=== PATIENT | female | born 1995 | race Caucasian/White ===

== ENCOUNTER 2017-06-20 19:04 | Emergency (ER) | payer OTHER, SELFPAY ==
[2017-06-20 19:05] VITALS: BP 129/79; PULSE 87; RESP 16; TEMP 36.9; O2SAT 99; BMI 24.7
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
[2017-06-20] MEDS: Naproxen 500 MG Tablet PO (19:38)
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
[2017-06-20 20:23] VITALS: BP 114/77; PULSE 93; RESP 18
== END 2017-06-20 20:29 | disposition home or self-care (01) ==
PROVIDERS: Emergency Provider Emergency Medicine; Family Provider Physician Assistant; PCP Physician Assistant
DX: S39.012A Strain of muscle, fascia and tendon of lower back, initial encounter (principal); S62.617A Displaced fracture of proximal phalanx of left little finger, initial encounter for closed fracture; S70.311A Abrasion, right thigh, initial encounter; V86.99XA Unspecified occupant of other special all-terrain or other off-road motor vehicle injured in nontraffic accident, initial encounter; Y93.I9 Activity, other involving external motion; Y92.89 Other specified places as the place of occurrence of the external cause; Y99.8 Other external cause status
CPT/HCPCS: 72100; 73130; 99282

== ENCOUNTER 2017-06-21 00:20 | Emergency (ER) | payer OTHER, SELFPAY ==
[2017-06-21 00:21] VITALS: BP 123/70; PULSE 93; RESP 18; TEMP 36.9; O2SAT 97; BMI 26.4
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
--- NOTE | 2017-06-21 01:56 | ED.DEP ---
ED Disposition - Plan for ED Patient: Disposition: Home or Assisted Living Chief Complaint: Head Injury Instructions: ED Concussion, ED Contusion Face Referrals: Cassius Penny PA [Primary Care Provider] - 3-5 Days if not improving Additional Instructions: You may use naproxen or an jmez-for-gqhechw pain medication of your choice for headache. If you have any worsening of your condition or any new concerning symptoms, return to the emergency department immediately for another evaluation.
[2017-06-21] MEDS: Naproxen 500 MG Tablet PO (02:03)
[2017-06-21 02:05] VITALS: RESP 18
== END 2017-06-21 02:06 | disposition home or self-care (01) ==
PROVIDERS: Emergency Provider Emergency Medicine; Family Provider Physician Assistant; PCP Physician Assistant
DX: S06.0X0D Concussion without loss of consciousness, subsequent encounter (principal); S16.1XXD Strain of muscle, fascia and tendon at neck level, subsequent encounter; S00.83XD Contusion of other part of head, subsequent encounter; V86.65XD Passenger of 3- or 4- wheeled all-terrain vehicle (ATV) injured in nontraffic accident, subsequent encounter
CPT/HCPCS: 70450; 72125; 99283

== ENCOUNTER 2018-01-08 19:16 | Emergency (ER) | payer OTHER, SELFPAY ==
[2018-01-08 19:17] VITALS: BP 142/106; PULSE 96; RESP 18; TEMP 36.7; O2SAT 98; BMI 25.5
[2018-01-08 20:55] LABS: Absolute Lymphocyte Count 2.34 X10^3/ul (0.83-4.51); Absolute Neutrophil Count 3.3 X10^3/uL (2.0-7.7); Basophil# 0.02 X10^3/uL; Basophil% 0.3 % (0-1); Eosinophil# 0.16 X10^3/uL; Eosinophils% 2.5 % (0-5); Hematocrit 34.1 % (37-47); Hemoglobin 10.5 g/dl (12.0-15.0); Lymphocyte # 2.34 X10^3/ul (4.0); Lymphocyte % 36.5 % (19-41); Mean Corp Hgb Conc 30.8 g/gl (32-36); Monocyte# 0.57 X10^3/uL; Monocyte% 8.9 % (0-10); Neutrophil # 3.32 X10^3/uL (2.7-7.7); Neutrophil % 51.8 % (47-70); Platelet Count 309 K/mm3 (150-450); RBC Distribution Width CV 14.5 % (11.6-14.6); RBC Distribution Width SD 41.1 fl (35.1-43.9); Red Blood Count 4.37 M/mm3 (4.2-5.4); White Blood Count 6.4 K/mm3 (4.4-11.0)
[2018-01-08 20:57] LABS: Bacteria 0 SEEN /hpf (None Seen)
[2018-01-08 20:58] LABS: POSITIVE COUNT NO; POSITIVE DIFFERENTIAL NO; POSITIVE MORPHOLOGY NO
[2018-01-08 21:00] LABS: Color, Urine Yellow (Yellow); Glucose, Dipstick Normal (Normal); Ketone-Dipstick 15 mg/dl (Negative); Leukocyte Esterase-Dipstick Negative /ul (Negative); Nitrite-Dipstick Negative (Negative); Occult Blood-Urine 50 /ul (Negative); Protein-Dipstick Negative (Negative); Specific Gravity, Urine 1.015 (1.002-1.030); Urine Bilirubin Dipstick Negative (Negative); Urine Clarity Clear (Clear); Urine Urobilinogen Normal (Normal)
[2018-01-08 21:13] LABS: Anion Gap 7 (5-15); BUN 15 mg/dL (7-18); BUN/Creat Ratio 23.4 RATIO (10-20); Calcium,Total 8.6 mg/dL (8.5-10.1); Chloride 107 mmol/L (98-107); Creatinine, Serum 0.64 mg/dL (0.55-1.02); EST Glomerular Filtration Rate 122 mL/min (>60); Est Glom Filt Rate - Afr Amer 147 mL/min (>60); Estimated Creatinine Clearance 108.13 ml/min; Glucose 95 mg/dL (74-106); Potassium 3.3 mmol/L (3.5-5.1); Sodium Level 141 mmol/L (136-145)
[2018-01-08 21:23] LABS: Pregnancy, Serum, hCG Quali. NEGATIVE Negative (0-9 Nonpreg)
[2018-01-08 21:30] LABS: Red Blood Cells-Urine 0-5 SEEN /hpf (0-5); Squamous Epithelial Cells - UA 0-5 SEEN /hpf (5-10); White Blood Cells 0-5 SEEN /hpf (0-5)
[2018-01-08 21:32] LABS: Mucous, Urine RARE /hpf (<or=2+)
--- NOTE | 2018-01-08 21:54 | CT_ITS ---
STUDY: CT ABDOMEN AND PELVIS WITH CONTRAST REASON FOR EXAM: Female, 22 years old. Left upper quadrant pain RADIATION DOSAGE (If Supplied By Facility): CTDIvol = ( 8.49 ) mGy, DLP = ( 721.15 ) mGycm TECHNIQUE: Transaxial images were obtained from the dome of the diaphragm to the symphysis pubis without oral contrast. 100ML ml of Isovue 300 contrast was administered. Sagittal and coronal images were reconstructed. Individualized dose optimization techniques were used for this CT. COMPARISON: None. FINDINGS: The lung bases are clear. The liver is normal. No dilated intrahepatic biliary radicles. The gallbladder is normal with no calcifications within it. There is no pericholecystic fluid collection or streakiness The spleen is normal. The pancreas is normal. Both adrenals are normal. The kidneys are normal with no masses, calculi or hydronephrosis The stomach is fluid-filled and distended There is no bowel distention, acute appendicitis or diverticulitis. No constricting lesions are seen in large bowel. There is a mild degree of fecal stasis with a large ventricle. In the rectum The abdominal wall is intact with no hernias. There is no ascites or any free intraperitoneal air. No indication of epiploic appendagitis The vascular structures in the retroperitoneum are normal. There is no retrocrural, retroperitoneal or mesenteric adenopathy. The bones and joints are normal. The urinary bladder is normal.--The uterus is normal. There are no abnormal adnexal masses and no free fluid in the cul-de-sac.. There is no inguinal or pelvic adenopathy. There is no inguinal hernia. . CT/Abdomen/Pelvis WITH Contrast IMPRESSION: No acute findings in the abdomen and pelvis. Specifically there is no acute appendicitis or diverticulitis. Fecal stasis with a large fecal impaction the rectum. A markedly distended fluid-filled stomach Electronically Signed: Solo Gerard MD at 0:51 EST Tel , Service support ,
[2018-01-08] MEDS: Ondansetron 4 MG/2 ML Vial IV (22:03)
[2018-01-08] MEDS: Morphine 4 MG/ML Syringe IV (22:04)
[2018-01-08] MEDS: 0.9% Normal Saline 1,000 ML 150 ML IV (22:04)
[2018-01-08 22:33] LABS: AST(SGOT) 14 U/L (15-37); Alanine Aminotransfer ALT/SGPT 19 U/L (13-56); Alkaline Phosphatase 68 U/L (45-117); Bilirubin, Direct 0.09 mg/dL (0.00-0.30); Globulin 3.5 g/dL (2.2-4.2); Lipase 132 U/L (73-393); Protein, Total 7.5 g/dL (6.4-8.2)
--- NOTE | 2018-01-09 01:05 | ED.VISSUMM ---
- ER Visit Summary Date of Service: 01/08/18 Chief Complaint: Left upper quadrant pain History of Present Illness: The patient is a 22 F with epigastric and left upper quadrant pain for the past couple of hours. She reports mild nausea. She had some subjective chills. Patient's mother reports she had similar symptoms when she had appendicitis. Physical Examination: Vital signs remarkable for blood pressure of 142/106, otherwise unremarkable. Patient is sitting upright in bed. She is nontoxic appearing. Heart is regular rate and rhythm. Lung sounds are clear. Abdomen is soft with focal tenderness in the left upper quadrant. Hypoactive but present bowel sounds are noted. There is no guarding or rebound. Test Results: CBC was normal white count hemoglobin 10.5. Chemistry studies significant only for potassium 3.3. Urinalysis unremarkable. test negative. CT abdomen pelvis shows no acute findings. There is no evidence of appendicitis or diverticulitis. There is fecal stasis noted with a large amount of stool. She is markedly distended fluid-filled stomach. Emergency Department Course and Treatment: Patient was given morphine, Zofran, and IV fluids here. Test results were discussed with patient and mother at bedside. She will be given mag citrate and this will be followed by [facility] daily. Treatment Plan: [] Disposition: Discharge Impression: Constipation This note was generated with [employer] dictation software. It may contain incorrect words, spelling, and punctuation that were not noted in review of the chart prior to signing ED Disposition - Plan for ED Patient: Chief Complaint: Abd Pain Referrals: Chin Marshall MD [Primary Care Provider] -
--- NOTE | 2018-01-09 01:06 | ED.DEP ---
ED Disposition - Plan for ED Patient: Disposition: Home or Assisted Living Chief Complaint: Abd Pain Instructions: ED Constipation Prescriptions: Magnesium Citrate [Citrate Of Magnesia] 150 ml PO Q6H PRN PRN #1 bottle PRN Reason: Constipation Polyethylene Glycol 3350 [Miralax] 17 gm PO DAILY #30 packet Referrals: Chin Marshall MD [Primary Care Provider] - 1 Week
[2018-01-09 01:19] VITALS: BP 114/74; PULSE 112; PULSE 98; RESP 17; O2SAT 96; O2SAT 98
== END 2018-01-09 01:24 | disposition home or self-care (01) ==
PROVIDERS: Emergency Provider Emergency Medicine; Family Provider Family Medicine; PCP Family Medicine
DX: K59.00 Constipation, unspecified (principal); K21.9 Gastro-esophageal reflux disease without esophagitis
CPT/HCPCS: 74177; 80048; 80076; 81001; 83690; 84703; 85025; 96361; 96374; 96375; 99283; J7030; Q9967; A4216; J2405

== ENCOUNTER 2018-09-24 02:49 | Emergency (ER) | payer OTHER, SELFPAY ==
[2018-09-24 02:52] VITALS: BP 129/91; PULSE 89; RESP 24; TEMP 36.8; O2SAT 97; BMI 30.2
--- NOTE | 2018-09-24 03:46 | RAD_ITS ---
STUDY: X-RAY CHEST REASON FOR EXAM: Female, 23 years old. Chest pain TECHNIQUE: Single AP portable view of the chest. COMPARISON: 11/12/2016 FINDINGS: The lungs are clear and expanded. There is no demonstrated pleural abnormality. Normal size heart. Normal mediastinum and skylar. Normal visualized pulmonary arteries. Normal visualized aortic arch and descending thoracic aorta. Normal visualized thoracic spine. Normal visualized ribs, clavicles, and shoulders. There is no demonstrated abnormality of the visualized soft tissue structures of the upper abdomen. RAD/Chest 1 View (Portable) IMPRESSION: Normal x-ray examination of the chest. Electronically Signed: Les Vigil MD at 4:24 EDT Tel , Service support ,
--- NOTE | 2018-09-24 03:46 | EKG12_ITS ---
Test Reason : Blood Pressure : / mmHG Vent. Rate : 079 BPM Atrial Rate : 079 BPM P-R Int : 116 ms QRS Dur : 082 ms QT Int : 370 ms P-R-T Axes : 015 034 037 degrees QTc Int : 424 ms Normal sinus rhythm with sinus arrhythmia Normal ECG Confirmed by EARL KIRKPATRICK ([id number]), newspaper editor managing PRABHA GARCIA ([id number] on 09/25/2018 3:11:57 PM Referred By: Confirmed By:EARL KIRKPATRICK
--- NOTE | 2018-09-24 03:48 | ED.DCSUM_ITS ---
- ER Visit Summary Date of Service: 09/24/18 Chief Complaint: Chest pain History of Present Illness: The patient is a 23 F presenting with chest pain. Patient states this started 1.5 hours ago. She states she was getting ready to go to bed and started having pain in her mid chest. She denies radiation. She has mild shortness of breath associated with this. She denies PE/DVT risk factors. No CAD risk factors. Physical Examination: Vitals are stable. Patient is afebrile. Alert no acute distress. HEENT exam is unremarkable. Neck is supple. Lungs are clear and equal bilaterally. Chest tenderness with no crepitus Heart is regular rate and rhythm. Abdomen is soft nontender nondistended. No guarding or rebound Extremities are unremarkable. Skin is warm and dry. No rash No focal neurologic deficit. Remainder of exam is unremarkable. Emergency Department Course and Treatment: Patient was given aspirin on arrival. EKG is sinus rate of 79 with no acute ischemic changes. She was given Toradol IV. CBC shows a hemoglobin 11.7. Chemistries unremarkable. Troponin is negative. hCG negative. D-dimer negative. Second troponin is also negative. On reevaluation patient is resting comfortably. She is advised to follow up wi th her primary care physician. Advised return to ED for worsening complaints. Disposition: Discharge home Impression: Chest wall pain This note was generated with [employer] dictation software. It may contain incorrect words, spelling, and punctuation that were not noted in review of the chart prior to signing ED Disposition - Plan for ED Patient: Instructions: CHEST WALL PAIN, Costochondritis Prescriptions: Naproxen [Naprosyn] 500 mg PO BID PRN #20 tab Prescription Printed Referrals: Chin Marshall MD [Primary Care Provider] -
[2018-09-24 04:06] LABS: Internal QC Validated? YES +Cl - CLEAR BKGD; Pregnancy, Serum, hCG Quali. NEGATIVE Negative
[2018-09-24] MEDS: Aspirin 81 MG TAB.CHEW 324 MG PO (04:07)
[2018-09-24 04:10] LABS: Absolute Lymphocyte Count 2.62 X10^3/uL (0.83-4.51); Absolute Neutrophil Count 3.4 X10^3/uL (2.0-7.7); Basophil# 0.03 X10^3/uL; Basophil% 0.4 % (0-1); Eosinophil# 0.12 X10^3/uL; Eosinophils% 1.8 % (0-5); Hematocrit 33.6 % (37-47); Hemoglobin 11.7 g/dL (12.0-15.0); Lymphocyte # 2.62 X10^3/ul (4.0); Lymphocyte % 39.2 % (19-41); Mean Corp Hgb Conc 34.8 g/dL (32-36); Mean Corpuscular Hgb 30.5 pg (27.0-32.0); Mean Corpuscular Volume 87.7 fL (81-99); Mean Platelet Vol. 11.7 fl (6.2-12.0); Monocyte# 0.52 X10^3/uL; Monocyte% 7.8 % (0-10); NRBC Flagged by Analyzer 0 % (0-5); Neutrophil # 3.38 X10^3/uL (2.7-7.7); Neutrophil % 50.7 % (47-70); Platelet Count 215 K/mm3 (150-450); RBC Distribution Width CV 11.6 % (11.6-14.6); RBC Distribution Width SD 36.9 fl (35.1-43.9); Red Blood Count 3.83 M/mm3 (4.2-5.4); White Blood Count 6.7 K/mm3 (4.4-11.0)
[2018-09-24 04:14] LABS: Anion Gap 10 (5-15); BUN 13 mg/dL (7-18); BUN/Creat Ratio 17.8 RATIO (10-20); Chloride 110 mmol/L (98-107); Creatinine, Serum 0.73 mg/dL (0.55-1.02); EST Glomerular Filtration Rate 104 mL/min (>60); Est Glom Filt Rate - Afr Amer 126 mL/min (>60); Estimated Creatinine Clearance 85.36 ml/min; Glucose 93 mg/dL (74-106); Potassium 3.5 mmol/L (3.5-5.1); Sodium Level 143 mmol/L (136-145)
[2018-09-24 04:41] LABS: D-Dimer Quantitative (DVT/PE) < 0.27 FEU/ug/m (0.27-0.49)
[2018-09-24 04:49] VITALS: BP 116/80; PULSE 73; RESP 16; O2SAT 98
[2018-09-24 06:00] VITALS: BP 113/70; PULSE 67; RESP 20; O2SAT 97
--- NOTE | 2018-09-24 06:31 | ED.DEP ---
ED Disposition - Plan for ED Patient: Instructions: CHEST WALL PAIN, Costochondritis Prescriptions: Naproxen [Naprosyn] 500 mg PO BID PRN #20 tablet Referrals: Chin Marshall MD [Primary Care Provider] -
[2018-09-24 06:48] VITALS: BP 114/73; PULSE 68; RESP 22; O2SAT 98
== END 2018-09-24 06:48 | disposition home or self-care (01) ==
LOC: ED 04:25
PROVIDERS: Emergency Provider Emergency Medicine; Family Provider Family Medicine; PCP Family Medicine
DX: R07.89 Other chest pain (principal); R06.02 Shortness of breath
CPT/HCPCS: 71045; 80048; 84484; 84703; 85025; 85379; 93005; 96374; 99285; A4216

== ENCOUNTER 2019-04-05 22:17 | Emergency (ER) | payer OTHER, SELFPAY ==
[2019-04-05 22:18] VITALS: BP 136/82; PULSE 89; RESP 18; TEMP 36.6; O2SAT 98; BMI 26.4
--- NOTE | 2019-04-05 22:36 | ED.VISSUMM ---
- ER Visit Summary Date of Service: 04/05/19 Chief Complaint: Left wrist injury History of Present Illness: The patient is a 23 F who presents with a left wrist injury that occurred tonight. Patient slipped on ice and fell. Patient landed on her left hand and wrist. Patient states the pain is worse with any movement. Patient denies any paresthesias or weakness. Patient states her hand feels weak due to the pain. Patient denies any head injury or loss of consciousness. Patient is right-hand dominant. Patient denies any other injuries. Physical Examination: Vital signs are stable. Patient is afebrile. Patient is in no acute distress. Musculoskeletal exam reveals tenderness over the left wrist and third metacarpal of her left hand. There is no bony crepitance or step-off. There is no ecchymosis. There is slight edema. There is a superficial abrasion over the palm of her left hand near the hyperthenar eminence. There is no bleeding noted. Range of motion was limited in all motions of the left wrist and hand secondary to pain. Sensation was intact light touch in all digits. Capillary refill was less than 2 seconds in all digits. There is good strength in the radial, median, and ulnar areas. Radial pulses are equal bilaterally. Test Results: X-rays of the left wrist were obtained. There is no acute fracture. These were interpreted by the radiologist and myself. Emergency Department Course and Treatment: Patient was given an ice pack and a dose of [place]. Patient was given a Velcro wrist splint. Patient was instructed to ice and elevate the left wrist. Patient was instructed to follow-up with her primary care physician in 5 to 7 days. Patient was instructed to take Tylenol or ibuprofen as needed for pain. Patient and family understood and were agreeable with the plan. All questions were answered. Disposition: Discharge home Impression: Left wrist sprain This note was generated with [employer] dictation software. It may contain incorrect words, spelling, and punctuation that were not noted in review of the chart prior to signing ED Disposition - Plan for ED Patient: Disposition: Home or Assisted Living Diagnosis: Left wrist sprain Instructions: Wrist Sprain Referrals: Chin Marshall MD [Primary Care Provider] - 5-7 Days
[2019-04-05] MEDS: HYDROcodone Bitartrate/Apap 5/325 Tablet PO (22:48)
--- NOTE | 2019-04-05 22:55 | RAD_ITS ---
STUDY: X-RAY - LEFT WRIST REASON FOR EXAM: Female, 23 years old. FALL. LEFT WRIST PAIN TECHNIQUE: 3 view(s) of the wrist were obtained. COMPARISON: None. FINDINGS: Normal visualized distal radius and ulna. Normal radiocarpal articulation. Normal distal radioulnar articulation. Normal carpal bones. Normal carpal articulations. Normal carpometacarpal articulation of the thumb. Normal second through fifth carpometacarpal articulations. Normal visualized metacarpal bones. The soft tissue structures are unremarkable. RAD/Wrist min 3 Views IMPRESSION: Normal x-ray examination of the wrist. Electronically Signed: Jimbo Vera, at 23:18 EST Tel , Service support ,
== END 2019-04-05 23:48 | disposition home or self-care (01) ==
PROVIDERS: Emergency Provider Emergency Medicine; PCP Family Medicine
DX: S63.502A Unspecified sprain of left wrist, initial encounter (principal); K21.9 Gastro-esophageal reflux disease without esophagitis; F41.9 Anxiety disorder, unspecified; Z79.899 Other long term (current) drug therapy; W00.0XXA Fall on same level due to ice and snow, initial encounter; Y93.01 Activity, walking, marching and hiking; Y92.89 Other specified places as the place of occurrence of the external cause; Y99.8 Other external cause status
CPT/HCPCS: 73110; 99283

== ENCOUNTER 2019-11-30 21:38 | Emergency (ER) | payer OTHER, SELFPAY ==
[2019-11-30 21:39] VITALS: BP 123/80; PULSE 76; RESP 16; TEMP 36.8; O2SAT 98; BMI 26.7
--- NOTE | 2019-11-30 22:09 | CT_ITS ---
STUDY: CT ABDOMEN AND PELVIS WITHOUT CONTRAST REASON FOR EXAM: Female, 24 years old. LT FLANK PAIN. No surgical or medical hx. Not RADIATION DOSAGE (If Supplied By Facility): CTDIvol = ( 7.25 ) mGy, DLP = ( 369.67 ) mGycm TECHNIQUE: Transaxial images were obtained from the dome of the diaphragm to the symphysis pubis without oral contrast, and without intravenous contrast. Sagittal and coronal images were reconstructed. Individualized dose optimization techniques were used for this CT. COMPARISON: 01/08/2018. FINDINGS: Lung bases are clear. Heart size is normal. The liver is unremarkable. The gallbladder is unremarkable. The spleen and pancreas are unremarkable. The adrenal glands are normal. The kidneys are unremarkable. No stones or hydronephrosis. Ureters are normal in course and caliber. No ureteral stone. The aorta is normal in caliber. There is no free fluid, free air or organized collection. No bowel obstruction or inflammatory change. Moderate to large stool burden. Urinary bladder is unremarkable. Normal abdominal wall. Normal osseous structures. CT/Abdomen/Pelvis without Cont IMPRESSION: 1. Moderate to large stool burden. 2. No renal stones or obstructive uropathy. Electronically Signed: Ade Leonard MD at 23:27 EDT Tel , Service support ,
[2019-11-30] MEDS: Metoclopramide 10 MG/2 ML Vial IV (22:33)
[2019-11-30] MEDS: DiphenhydrAMINE 50 MG/ML Syringe 25 MG IV (22:34)
[2019-11-30] MEDS: Ketorolac 15 MG/ML Vial IV (22:35)
[2019-11-30] MEDS: 0.9% Normal Saline 1,000 ML 1000 ML IV (22:37)
[2019-11-30 22:43] LABS: Internal QC Validated? YES +Cl - CLEAR BKGD; Pregnancy, Serum, hCG Quali. NEGATIVE Negative
[2019-11-30 22:59] LABS: Mucous, Urine 0 SEEN /hpf (<or=2+)
[2019-11-30 23:22] LABS: Color, Urine Yellow (Yellow); Glucose, Dipstick Normal (Normal); Ketone-Dipstick Negative (Negative); Leukocyte Esterase-Dipstick 25 /ul (Negative); Nitrite-Dipstick Negative (Negative); Occult Blood-Urine Negative /ul (Negative); Protein-Dipstick Negative (Negative); Specific Gravity, Urine 1.015 (1.002-1.030); Urine Bilirubin Dipstick Negative (Negative); Urine Clarity Clear (Clear); Urine Urobilinogen Normal (Normal)
[2019-11-30 23:36] LABS: Bacteria RARE /hpf (None Seen); Red Blood Cells-Urine 0-5 SEEN /hpf (0-5); Squamous Epithelial Cells - UA 5-10 SEEN /hpf (5-10); White Blood Cells 5-10 SEEN /hpf (0-5)
--- NOTE | 2019-12-01 00:10 | ED.VISSUMM ---
- ER Visit Summary Date of Service: 12/01/19 Chief Complaint: Abdominal pain History of Present Illness: The patient is a [address] Marshall. She reports she has left upper quad abdominal pain that began 2 days ago and is gradually gotten worse. Is sharp pain is 7 out of 10 currently and at worst. Is worsened by laying flat. Is relieved by position. She said nausea without vomiting. No diarrhea. Last bowel was today. No hematochezia. No dysuria or frequency. She reports her last menstrual period was a few days ago. No vaginal bleeding or discharge. On review of systems patient also complains of headache is 6 out of 10 in severity. Is an aching pain that is occipital in location. She states it is similar to her prior headaches. And that it is tolerable. Physical Examination: Vitals: Stable. Afebrile. General: Well-nourished and well-developed. Head: Normocephalic atraumatic. Neck: Supple, no lymphadenopathy. No JVD. Nontender. Cardiovascular: Regular rate and rhythm. No murmurs. Respiratory: No respiratory distress. Clear to auscultation bilaterally. Abdominal: Soft, mild left upper quadrant tenderness palpation, nondistended, normal bowel sounds. No guarding, rebound, or peritoneal signs. Back: Mild CVA tenderness. Extremities: Nontender, no edema. Skin: Normal color, no rash. Neurologic: Alert and oriented ?3. Cranial nerves II through XII are intact. Normal strength and sensation. Psych: Normal affect. Test Results: test is negative. Urinalysis shows no evidence of infection or stone. Clinical Impression(s) from Imaging Studies Abdomen/Pelvis CT 11/30/19 22:09 IMPRESSION: 1. Moderate to large stool burden. 2. No renal stones or obstructive uropathy. Electronically Signed: Ade Leonard MD at 23:27 EDT Tel , Service support , Emergency Department Course and Treatment: Patient had an IV placed. She was given a liter normal saline. She is given Toradol, Reglan, and Benadryl IV. She feels improved and is resting comfortably. Treatment Plan: Patient be discharged with Reglan and magnesium citrate. Instructed to follow with her primary care physician 1 to 2 days if not proving after bowel movement. Return to the emergency department for any worsening symptoms. Disposition: To home in improved and stable condition. Impression: 1. Abdominal pain, uncertain cause. This note was generated with [employer] dictation software. It may contain incorrect words, spelling, and punctuation that were not noted in review of the chart prior to signing ED Disposition - Plan for ED Patient: Disposition: Home or Assisted Living Instructions: ED Constipation Prescriptions: Magnesium Citrate [Citrate Of Magnesia] 300 ml PO X1 #1 bottle Prescription Printed Metoclopramide [Reglan] 10 mg PO 4X/DAY PRN #20 tab PRN Reason: Headache Prescription Printed Referrals: Chin Marshall MD [Primary Care Provider] - 1-2 Days if not improving
[2019-12-01 00:22] VITALS: BP 112/68; PULSE 66; RESP 16
== END 2019-12-01 00:28 | disposition home or self-care (01) ==
LOC: ED 22:08
PROVIDERS: Emergency Provider Emergency Medicine; PCP Family Medicine
DX: R10.12 Left upper quadrant pain (principal); K21.9 Gastro-esophageal reflux disease without esophagitis; F41.9 Anxiety disorder, unspecified; Z79.899 Other long term (current) drug therapy
CPT/HCPCS: 74176; 81001; 84703; 96361; 96374; 96375; 99281; J7030

== ENCOUNTER → 2020-06-25 | Outpatient (CLI) | payer OTHER, SELFPAY ==
[2020-07-02 12:50] LABS: Pathologist provided ICD-10: N
[2020-07-02 19:46] LABS: HPV Reflexed? NOT INDICATED
== END | disposition home or self-care (01) ==
LOC: LABSPEC 15:24
PROVIDERS: PCP Family Medicine; Visit Provider Student in an Organized Health Care Education/Training Program
DX: Z12.4 Encounter for screening for malignant neoplasm of cervix (principal)
CPT/HCPCS: 88175; G0145

== ENCOUNTER 2020-07-04 13:19 | Emergency (ER) | payer OTHER, SELFPAY ==
[2020-07-04 13:20] VITALS: BP 125/87; PULSE 84; RESP 18; TEMP 36.6; O2SAT 94; BMI 26.8
--- NOTE | 2020-07-04 13:35 | EKG12_ITS ---
Test Reason : CP Blood Pressure : / mmHG Vent. Rate : 079 BPM Atrial Rate : 079 BPM P-R Int : 126 ms QRS Dur : 074 ms QT Int : 386 ms P-R-T Axes : 010 030 046 degrees QTc Int : 442 ms Normal sinus rhythm Normal ECG Confirmed by ELLIE BERNABE, NITZA ([id number]), field map editor NIKHIL XIAO ([id number]) on 07/06/2020 9:12:46 AM Referred By: REBECA/RANDY Confirmed By:NITZA ARGUETA MD
--- NOTE | 2020-07-04 13:36 | EDS_ITS ---
HPI History of Present Illness Chief Complaint: Chest Pain Informant: patient and parent Onset/Context/Timing Onset: Today Activity at onset: gradual Timing: Continuous Location: Substernal Current Severity: Mild Maximum Severity: Mild Associated Symptoms: Negative for Nausea, Vomiting, Diaphoresis and Dyspnea Narrative Prior Similar Symptoms: No Recent Illness/Hospitalization: No CVD Risk Factors: Negative for Hypertension, Diabetes, Hypercholesterolemia and Family History 1' </=55 PE Risk Factors: Negative for Recent Travel/Surgery, Recent Immobilization, Prior DVT or PE and Cancer [facility] Medical History (Updated 07/04/20 @ 15:[address] Sebastián Harp MD) Anxiety Home Medications escitalopram oxalate 20 mg PO DAILY 04/05/19 [History Last Taken Unknown] lansoprazole 30 mg PO DAILY 04/05/19 [History Last Taken Unknown] norethindrone (contraceptive) 0.35 mg PO DAILY 04/05/19 [History Last Taken Unknown] magnesium citrate 300 ml PO X1 #1 bottle 12/01/19 [Rx Last Taken Unknown] metoclopramide HCl 10 mg PO 4X/DAY PRN #20 tab 12/01/19 [Rx Last Taken Unknown] Allergy/AdvReac Type Severity Reaction Status Date / Time No Known Allergies Allergy Verified 11/30/19 21:39 Social History Smoking Status: Never smoker ROS ROS ED ROS Narrative Patient denies any recent illness. No cough fever or chills. No hemoptysis. No leg pain or swelling. Just finished her menstrual period the other day. Review of Systems ROS Unobtainable: Denies due to encephalopathy Constitutional Constitutional ED: Denies chills or fever(s) Eyes Eyes: Denies none ENT ENT ED: Denies ear pain or sore throat Cardiovascular Cardiovascular: Reports as per HPI and chest pain Respiratory/Chest Respiratory/Chest: Reports dyspnea; Denies cough or sputum Gastrointestinal Gastrointestinal: Denies abdominal pain, nausea or vomiting Genitourinary Genitourinary ED: Denies dysuria or hematuria Musculoskeletal Musculoskeletal: Denies arthralgias or myalgias Integumentary Denies abscess or rash Neurologic Neurologic: Denies headache(s) Psychiatric Psychiatric: Denies depression Endocrine Endocrinology: Denies polyuria Hematologic/Lymphatic Hematologic/Lymphatic: Denies easy bruising Allergic/Immunologic Allergic/Immunologic ED: Denies urticaria EXAM Physical Exam Narrative Exam Narrative: Young female no acute distress vital signs stable afebrile. Pulse ox 94% on room air no signs of hypoxia. Exam unremarkable except for mild reproducible sternal tenderness. No ecchymosis or bruising no subcu air crepitance. She does have reproducible chest wall pain. Heart regular rate and rhythm no murmur. Abdomen soft nontender. Extremities are nontender without edema. There is no calf tenderness. Const Vital Signs: 07/04/20 13:20 07/04/20 14:09 Temperature 97.8 F Temperature Source Temporal Pulse Rate 84 Respiratory Rate 18 Blood Pressure 125/87 H Blood Pressure Mean 99 Pulse Ox 94 Oxygen Delivery Method Room Air Room Air Positive well nourished and well developed General Appearance ED: well developed HEENT normocephalic and atraumatic; Negative for trauma or tenderness Eyes PERRL and EOMs intact bilaterally Neck no lymphadenopathy, supple and no JVD General: Negative for tenderness Chest Wall Chest: tenderness Resp normal respiratory effort and clear to auscultation bilaterally Resp Narrative: No pleuritic chest pain with deep inspiration. Effort and Inspection: respiratory distress Cardio regular rate, regular rhythm, S1 normal heart sound and no murmurs Rate: Negative for tachycardic GI normal to inspection, nondistended, normoactive bowel sounds, soft to palpation, non-tender, non-distended and no masses Back/Spine no CVA tenderness Extremity normal to inspection General Extremety ED: Negative for edema or tenderness General Extremity: Negative for edema Neuro oriented x3 and CN's II-XII intact bilaterally Sensorium / Orientation: awake, alert, oriented to person, oriented to place and oriented to time Motor Exam: strength 5/5 throughout Psych mental status grossly normal Skin no rashes or lesions noted and no wounds Heart Score History: Slightly/Non-Suspicious ECG: Normal Age: </= 45 years Risk Factors: No Risk Factors Troponin: </= Normal Limit Score: 0 MDM MDM MDM Narrative Medical decision making narrative: 24-year-old female with midsternal chest pain is reproducible on exam. I do not think this is cardiac etiology she is on control however arm will be worked up and rule out any possibility of a pulmonary emboli. Repeat exam at 3:15 PM patient is doing well. We went over all of her test results. She can follow-up as an outpatient her primary care physician for the anemia. Otherwise Tylenol and or Motrin for pain. Return if worse. Lab Data Attestation: I reviewed the patient's lab results. Lab results narrative: CBC shows a normal white count of four hemoglobin 9.1 she has a chronic anemia normally runs between nine and 11. D-dimer is normal at 0.29. Electrolytes are unremarkable with normal gap and creatinine. Troponin negative. Chest x-ray showed normal cardiac silhouette mediastinum read as normal by myself and the radiologist. Portable one view. Labs: Laboratory Results - last 24 hr 07/04/20 07/04/20 07/04/20 14:00 14:00 14:00 WBC 4.0 L RBC 4.22 Hgb 9.1 L Hct 31.2 L MCV 73.9 L MCH 21.6 L MCHC 29.2 L RDW Std Deviation 41.1 RDW Coeff of Kallie 15.2 H Plt Count 361 MPV 11.2 Immature Gran % (Auto) 0.300 Neut % (Auto) 45.7 L Lymph % (Auto) 44.1 H Price % (Auto) 6.3 Eos % (Auto) 2.8 Baso % (Auto) 0.8 Absolute Neuts (auto) 1.8 L Absolute Lymphs (auto) 1.76 Nucleated RBC % 0 D-Dimer Quant (PE/DVT) 0.29 Sodium 140 Potassium 3.6 Chloride 109 H Carbon Dioxide 26.0 Anion Gap 5 BUN 9 Creatinine 0.61 Estim Creat Clear Calc 106.39 Est GFR (MDRD) Af Amer 153 Est GFR (MDRD) Non-Af 127 BUN/Creatinine Ratio 14.8 Glucose 93 Calcium 8.6 Troponin I < 0.015 Radiography Chest X-Ray - ED: 1 View, Read by ED Physician, Normal, Heart, Lungs, Mediastinum, Bony Structures and No Acute Disease Diagnostic Testing: Radiology Impression Chest X-Ray 07/04/20 14:04 IMPRESSION: No radiographic evidence of acute cardiopulmonary disease. at 1431 Reported and signed by: Elías Saravia MD Electronically Signed: Elías Saravia MD at 14:30 EDT Tel , Service support , EKG Initial EKG: Attestation: I personally reviewed and interpreted this EKG as follows: Interpretation: Sinus Rhythm and No Acute Injury Pattern Comments: Normal sinus rhythm rate of 79 with no acute signs of ME or ischemia. Normal. Prior EKG tracings: not available for review Prior: No Prior Discharge Plan Triage Chief Complaint: Chest Pain ED Provider: Sebastián Harp Dx/Rx/DC Orders Clinical Impression: Acute chest wall pain Instructions: ED Chest Wall Pain, Costochondritis Prescriptions: No Action lansoprazole 30 MG capsule 30 mg PO DAILY RF: 0 norethindrone (contraceptive) 0.35 MG tablet 0.35 mg PO DAILY RF: 0 escitalopram oxalate 20 MG tablet 20 mg PO DAILY RF: 0 magnesium citrate 300 ML solution 300 ml PO X1 Qty: 1 RF: 0 metoclopramide HCl 10 MG tablet 10 mg PO 4X/DAY PRN (Reason: Headache) Qty: 20 RF: 0 Primary Care Provider: Chin Marshall Referrals: Chin Marshall MD [Primary Care Provider] - 1 Week if not improving Activity Restrictions/Additional Instructions: Your lab work was unremarkable except for an anemia. You can follow-up with your primary care physician to have that worked up. Your chest x-ray, EKG and blood clot test were all normal. This appears to be musculoskeletal chest wall pain you can take Motrin or Advil and that should improve this. Follow-up with your doctor if not improving in for further evaluation of your anemia which is a low blood count. Disposition Disposition: Home, self care
--- NOTE | 2020-07-04 14:04 | RAD_ITS ---
EXAM: XR CHEST, 1 VIEW : 1995 CLINICAL INDICATION: chest pain TECHNIQUE: Frontal view of the chest. This report was created using [employer] report generation technology. COMPARISON: 09/24/2018 FINDINGS: LUNGS AND PLEURAL SPACES: Unremarkable. No consolidation or edema. No pneumothorax. No effusion. HEART: Unremarkable. Cardiac silhouette not enlarged. MEDIASTINUM: Central airways and mediastinal contour are unremarkable. BONES/JOINTS: Unremarkable. SOFT TISSUES: Unremarkable. RAD/Chest 1 View (Portable) IMPRESSION: No radiographic evidence of acute cardiopulmonary disease. at 1431 Reported and signed by: Elías Saravia MD Electronically Signed: Elías Saravia MD at 14:30 EDT Tel , Service support ,
[2020-07-04 14:10] LABS: Absolute Lymphocyte Count 1.76 X10^3/uL (0.83-4.51); Absolute Neutrophil Count 1.8 X10^3/uL (2.0-7.7); Basophil# 0.03 X10^3/uL; Basophil% 0.8 % (0-1); Eosinophil# 0.11 X10^3/uL; Eosinophils% 2.8 % (0-5); Hematocrit 31.2 % (37-47); Hemoglobin 9.1 g/dL (12.0-15.0); Lymphocyte # 1.76 X10^3/ul (0.83-4.51); Lymphocyte % 44.1 % (19-41); Mean Corp Hgb Conc 29.2 g/dL (32-36); Mean Corpuscular Hgb 21.6 pg (27.0-32.0); Mean Corpuscular Volume 73.9 fL (81-99); Mean Platelet Vol. 11.2 fl (6.2-12.0); Monocyte# 0.25 X10^3/uL; Monocyte% 6.3 % (0-10); NRBC Flagged by Analyzer 0 % (0-5); Neutrophil # 1.83 X10^3/uL (2.7-7.7); Neutrophil % 45.7 % (47-70); Platelet Count 361 K/mm3 (150-450); RBC Distribution Width CV 15.2 % (11.6-14.6); RBC Distribution Width SD 41.1 fl (35.1-43.9); Red Blood Count 4.22 M/mm3 (4.2-5.4)
[2020-07-04 14:21] LABS: D-Dimer Quantitative (DVT/PE) 0.29 FEU/ug/m (0.27-0.49)
[2020-07-04 14:27] LABS: Anion Gap 5 (5-15); BUN 9 mg/dL (7-18); BUN/Creat Ratio 14.8 RATIO (10-20); Calcium,Total 8.6 mg/dL (8.5-10.1); Chloride 109 mmol/L (98-107); Creatinine, Serum 0.61 mg/dL (0.55-1.02); EST Glomerular Filtration Rate 127 mL/min (>60); Est Glom Filt Rate - Afr Amer 153 mL/min (>60); Estimated Creatinine Clearance 106.39 ml/min; Glucose 93 mg/dL (74-106); Potassium 3.6 mmol/L (3.5-5.1); Sodium Level 140 mmol/L (136-145)
[2020-07-04 15:19] VITALS: BP 113/79; PULSE 82; RESP 20; O2SAT 98
[2020-07-04 15:32] VITALS: BP 118/62; PULSE 74; RESP 16; O2SAT 99
== END 2020-07-04 15:33 | disposition home or self-care (01) ==
PROVIDERS: Emergency Provider Emergency Medicine; PCP Family Medicine
DX: R07.89 Other chest pain (principal)
CPT/HCPCS: 71045; 80048; 84484; 85025; 85379; 93005; 99284; J7030

== ENCOUNTER 2021-09-16 18:27 | Emergency (ER) | payer MEDICAID, SELFPAY ==
[2021-09-16 18:29] VITALS: PULSE 74; RESP 16; TEMP 36.6; O2SAT 99; BMI 30.6
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
[2021-09-16 20:44] VITALS: BP 135/80; PULSE 74; RESP 16; O2SAT 99
== END 2021-09-16 20:48 | disposition home or self-care (01) ==
PROVIDERS: Emergency Provider Emergency Medicine; PCP Family Medicine; Visit Provider Emergency Medicine
DX: S16.1XXD Strain of muscle, fascia and tendon at neck level, subsequent encounter (principal); F41.9 Anxiety disorder, unspecified; F07.81 Postconcussional syndrome; V44.6XXD Car passenger injured in collision with heavy transport vehicle or bus in traffic accident, subsequent encounter
CPT/HCPCS: 99282

== ENCOUNTER 2022-03-22 16:30 | Outpatient (RCR) | payer MEDICAID, SELFPAY ==
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
== END 2022-03-22 19:00 | disposition home or self-care (01) ==
LOC: PT 16:30
PROVIDERS: PCP Family Medicine; Referring Provider Nurse Practitioner; Visit Provider Nurse Practitioner
DX: S06.0X0D Concussion without loss of consciousness, subsequent encounter (principal); X58.XXXD Exposure to other specified factors, subsequent encounter; M54.2 Cervicalgia
CPT/HCPCS: 97012; 97035; 97110; 97140; 97162; 97530

== ENCOUNTER 2023-10-04 17:33 | Emergency (ER) | payer MEDICAID, SELFPAY ==
[2023-10-04 17:34] VITALS: BP 116/88; PULSE 81; RESP 18; TEMP 36.2; O2SAT 98; BMI 28.0
--- NOTE | 2023-10-04 17:53 | ED.VIS.GI ---
HPI HPI - GI History of Present Illness Chief Complaint: Abd Pain Detail of Chief Complaint: 1 week history of suprapubic abdominal pelvic pain. Informant: patient Abdominal Pain/Flank Pain Onset: Days Context: Gradual Onset Timing: Continuous Quality: Cramping Location: See Diagram (Suprapubic) Current Severity: Mild Maximum Severity: Mild Worsened by: Nothing Relieved by: Nothing Nausea/Vomiting/Emesis GI Symptom: Negative for Nausea or Vomiting Diarrhea/Melena/Hematochezia GI Symptom: Negative for Diarrhea, Melena or Hematochezia Associated Symptoms Associated Symptoms: Positive for Dysuria; Negative for Frequency, Hematuria or Urgency LMP: End august. Narrative Narrative: 28-year-old female Ab0. Complaint of suprapubic abdominal pelvic pain for about a week. Daily discomfort. Worse with urination. Denies gross hematuria or foul-smelling urine. Denies any vaginal bleeding or discharge. Last menstrual period was around 12 September. No fever. No weight change. No abdominal trauma. No prior abdominal or pelvic surgeries. Prior similar symptoms: No Recent Illness/Hospitalization: No PFSH PFS Medical History Anxiety Home Medications ?Medication ?Instructions ?Recorded ?Last Taken ?Type escitalopram oxalate 20 mg tablet 20 mg PO DAILY 04/05/19 Unknown History lansoprazole 30 mg capsule,delayed 30 mg PO DAILY 04/05/19 Unknown History release norethindrone (contraceptive) 0.35 0.35 mg PO DAILY 04/05/19 Unknown History mg tablet magnesium citrate 300 ml PO X1 ##1 12/01/19 Unknown Rx metoclopramide HCl 10 mg tablet 10 mg PO 4X/DAY PRN Headache #20 12/01/19 Unknown Rx tabs cyclobenzaprine 10 mg tablet 10 mg PO TID PRN muscle spasm #15 09/16/21 Unknown Rx tabs ibuprofen 800 mg tablet 800 mg PO Q8H PRN pain #30 tabs 09/16/21 Unknown Rx sulfamethoxazole 800 1 tab PO BID 5 days #10 tabs 10/04/23 Unknown Rx mg-trimethoprim 160 mg tablet (Bactrim DS) Allergy/AdvReac Type Severity Reaction Status Date / Time No Known Allergies Allergy Verified 10/04/23 17:34 Social History Smoking Status: Never smoker ROS ROS ED ROS Narrative Suprapubic abdominal pain and dysuria. Constitutional Constitutional ED: Denies chills or fever(s) ENT ENT ED: Denies ear pain Cardiovascular Cardiovascular: Denies chest pain Respiratory/Chest Respiratory/Chest: Denies cough or dyspnea Gastrointestinal Gastrointestinal: Reports abdominal pain; Denies constipation, diarrhea, melena, nausea or vomiting Genitourinary Genitourinary ED: Reports dysuria; Denies hematuria Musculoskeletal Musculoskeletal: Denies arthralgias or back pain Integumentary Denies abscess or Abrasions Neurologic Neurologic: Denies headache(s) Psychiatric Psychiatric: Denies anxiety or depression Endocrine Endocrinology: Denies polydipsia Hematologic/Lymphatic Hematologic/Lymphatic: Denies easy bleeding Allergic/Immunologic Allergic/Immunologic ED: Denies mouth swelling or tongue swelling EXAM Physical Exam Narrative Exam Narrative: Well-appearing 28-year-old female. Vital signs stable afebrile. No distress. H EENT exam unremarkable. Lungs clear. Heart regular rhythm rate about 80 no murmur. Chest wall ribs nontender. Abdomen soft nondistended normal bowel sounds no peritoneal signs. Mild suprapubic tenderness below the umbilicus. No hernia or mass. No distention. Both the right upper and right lower quadrants are unremarkable. No signs of trauma. Moving all 4 extremities. Nontender no edema. Back nontender. She is awake and alert. Const Vital Signs: 10/04/23 17:34 Temperature 97.1 F L Temperature Source Temporal Pulse Rate 81 Respiratory Rate 18 Blood Pressure 116/88 H Blood Pressure Mean 97 Pulse Ox 98 Oxygen Delivery Method Room Air Positive well nourished and well developed; Negative for obese, cachectic, contractures or unkempt General Appearance ED: well developed and NAD; Negative for unkempt, cachectic, contractures or pallor Nutritional Appearance: Negative for cachectic or obese HEENT Reports moist mucous membranes normocephalic and atraumatic; Negative for trauma or tenderness Eyes PERRL and EOMs intact bilaterally General Eye ED: Negative for pale conjunctiva or scleral icterus Neck no lymphadenopathy, supple and no JVD General: Negative for tenderness Carotids: Negative for other Resp normal respiratory effort and clear to auscultation bilaterally Effort and Inspection: Negative for respiratory distress Auscultation: Negative for rales, rhonchi, wheezes or diminished lung sounds Cardio regular rhythm, S1 normal heart sound, S2 normal heart sound and no murmurs GI non-distended and no masses; Negative for non-tender GI Narrative: Mild suprapubic abdominal tenderness. Inspection: Negative for abdominal distention Auscultation: normoactive bowel sounds Palpation: soft and tender; Negative for guarding or rebound tenderness present Back/Spine no CVA tenderness Extremity full ROM General Extremety ED: Negative for edema or tenderness General Extremity: Negative for edema Neuro CN's II-XII intact bilaterally and moves all extremities Sensorium / Orientation: alert, oriented to person, oriented to place and oriented to time; Negative for orientation impaired, confused, lethargic or stuporous Psych thought process normal Appearance: Negative for unkempt Skin no wounds General Skin Exam: Negative for jaundice or pallor Lesions: no lesions Rashes: no rashes Trauma: Negative for abrasion MDM MDM MDM Narrative Medical decision making narrative: 28-year-old female with suprapubic abdominal pain. Screening labs. UA. She is having dysuria might be a UTI. Well . Clinically at this time does not appear to be appendicitis. Ovarian cyst is also on the differential. Joint any imaging currently. Repeat exam at 6:35 PM patient doing well. Abdomen benign. No change. No right lower quadrant abdominal pain. She and I discussed her test results. I suspect this is cystitis and she will be treated as a UTI. Given a dose of Bactrim here. Patient on Bactrim 1 pill twice a day for the next 5 days. Follow-up if not improving or return if worse. History & Record Review Discussion w/independent historian: Patient Additional record(s) reviewed:: Prior inpatient record, Prior outpatient record, Prior ED visit and Prior labs Lab Data Attestation: I reviewed the patient's lab results. Lab results narrative: CBC normal. White count of 5. H&H 13.5 and 39. Platelets 236. Electrolytes show potassium 3.4. Gap 10. Normal BUN and creatinine. Glucose 89. Serum test negative. Urinalysis shows 25-50 white cells. 1+ bacteria. No nitrates. Given her dysuria and suprapubic discomfort this will be treated as UTI. Labs: Laboratory Results - last 24 hr 10/04/23 17:57 WBC 5.6 RBC 4.38 Hgb 13.5 Hct 39.6 MCV 90.4 MCH 30.8 MCHC 34.1 RDW Std Deviation 37.6 RDW Coeff of Kallie 11.3 L Plt Count 236 MPV 10.9 Immature Gran % (Auto) 0.200 Neut % (Auto) 52.0 Lymph % (Auto) 31.8 Emmet % (Auto) 8.9 Eos % (Auto) 6.4 H Baso % (Auto) 0.7 Absolute Neuts (auto) 2.9 Absolute Lymphs (auto) 1.78 Nucleated RBC % 0 Sodium 140 Potassium 3.4 L Chloride 108 H Carbon Dioxide 22.0 Anion Gap 10 BUN 16 Creatinine 0.79 Estim Creat Clear Calc 88.41 Est GFR (MDRD) Af Amer 110 Est GFR (MDRD) Non-Af 91 BUN/Creatinine Ratio 20.2 H Glucose 89 Calcium 9.0 Serum , Qual NEGATIVE Urine Color Yellow Urine Clarity Cloudy Urine pH 6.0 Ur Specific [place] 1.025 Urine Protein 100 H Urine Glucose (UA) Normal Urine Ketones 5 H Urine Occult Blood 50 H Urine Nitrite Negative Urine Bilirubin Negative Urine Urobilinogen Normal Ur Leukocyte Esterase 500 H Urine RBC 0-5 SEEN Urine WBC 25-50 SEEN Ur Squamous Epith Cells 0 SEEN Urine Bacteria 1+ Urine Mucus RARE Discharge Plan Triage Chief Complaint: Abd Pain ED Provider: Sebastián Harp Dx/Rx/DC Orders Clinical Impression: Cystitis, Abdominal pain Instructions: ED Cystitis Female Adult Prescriptions: New sulfamethoxazole-trimethoprim [Bactrim DS] 800-160 mg tablet 1 tab PO BID 5 Days Qty: 10 0RF No Action lansoprazole 30 MG capsule 30 mg PO DAILY norethindrone (contraceptive) 0.35 MG tablet 0.35 mg PO DAILY escitalopram oxalate 20 MG tablet 20 mg PO DAILY magnesium citrate 300 ML solution 300 ml PO X1 Qty: 1 0RF Rx Instructions: metoclopramide HCl 10 MG tablet 10 mg PO 4X/DAY PRN (Reason: Headache) Qty: 20 0RF cyclobenzaprine 10 mg tablet 10 mg PO TID PRN (Reason: muscle spasm) Qty: 15 0RF ibuprofen 800 mg tablet 800 mg PO Q8H PRN (Reason: pain) Qty: 30 0RF Primary Care Provider: Chin Marshall Referrals: Chin Marshall MD [Primary Care Provider] - 3-5 Days if not improving Activity Restrictions/Additional Instructions: You have a urinary tract infection. Plenty of fluids and cranberry juice. Motrin and Tylenol for pain. The antibiotic Bactrim 1 pill twice a day for the next 5 days starting tomorrow. Will give you your first dose here tonight. Follow-up with your doctor if not improving or return if worse. Print Language: Ivorian Disposition Disposition: Home, Self Care
[2023-10-04 18:02] LABS: Squamous Epithelial Cells - UA 0 SEEN /hpf (5-10)
[2023-10-04 18:04] LABS: Color, Urine Yellow (Yellow); Glucose, Dipstick Normal (Normal); Ketone-Dipstick 5 mg/dl (Negative); Leukocyte Esterase-Dipstick 500 /ul (Negative); Nitrite-Dipstick Negative (Negative); Occult Blood-Urine 50 /ul (Negative); Protein-Dipstick 100 mg/dl (Negative); Specific Gravity, Urine 1.025 (1.002-1.030); Urine Bilirubin Dipstick Negative (Negative); Urine Clarity Cloudy (Clear); Urine Urobilinogen Normal (Normal)
[2023-10-04 18:09] LABS: Absolute Lymphocyte Count 1.78 X10^3/uL (0.83-4.51); Absolute Neutrophil Count 2.9 X10^3/uL (2.0-7.7); Basophil# 0.04 X10^3/uL; Basophil% 0.7 % (0-1); Eosinophil# 0.36 X10^3/uL; Eosinophils% 6.4 % (0-5); Hematocrit 39.6 % (37-47); Hemoglobin 13.5 g/dL (12.0-15.0); Lymphocyte # 1.78 X10^3/ul (0.83-4.51); Lymphocyte % 31.8 % (19-41); Mean Corp Hgb Conc 34.1 g/dL (32-36); Mean Corpuscular Hgb 30.8 pg (27.0-32.0); Mean Corpuscular Volume 90.4 fL (81-99); Mean Platelet Vol. 10.9 fl (6.2-12.0); Monocyte% 8.9 % (0-10); NRBC Flagged by Analyzer 0 % (0-5); Neutrophil # 2.91 X10^3/uL (2.7-7.7); Platelet Count 236 K/mm3 (150-450); RBC Distribution Width CV 11.3 % (11.6-14.6); RBC Distribution Width SD 37.6 fl (35.1-43.9); Red Blood Count 4.38 M/mm3 (4.2-5.4); White Blood Count 5.6 K/mm3 (4.4-11.0)
[2023-10-04 18:14] LABS: Bacteria 1+ /hpf (None Seen); Mucous, Urine RARE /hpf (<or=2+); Red Blood Cells-Urine 0-5 SEEN /hpf (0-5); White Blood Cells 25-50 SEEN /hpf (0-5)
[2023-10-04 18:20] LABS: Internal QC Validated? YES +Cl - CLEAR BKGD; Pregnancy, Serum, hCG Quali. NEGATIVE Negative
[2023-10-04 18:22] LABS: Anion Gap 10 (5-15); BUN 16 mg/dL (7-18); BUN/Creat Ratio 20.2 RATIO (10-20); Chloride 108 mmol/L (98-107); Creatinine, Serum 0.79 mg/dL (0.55-1.02); EST Glomerular Filtration Rate 91 mL/min (>60); Est Glom Filt Rate - Afr Amer 110 mL/min (>60); Estimated Creatinine Clearance 88.41 ml/min; Glucose 89 mg/dL (74-106); Potassium 3.4 mmol/L (3.5-5.1); Sodium Level 140 mmol/L (136-145)
[2023-10-04 18:42] VITALS: BP 115/70; PULSE 85; RESP 16; TEMP 36.9; O2SAT 96
[2023-10-04] MEDS: Smz/Tmp Ds Tablet 1 TABLET PO (18:46)
== END 2023-10-04 18:51 | disposition home or self-care (01) ==
PROVIDERS: Emergency Provider Emergency Medicine; PCP Family Medicine; Visit Provider Emergency Medicine
DX: N30.90 Cystitis, unspecified without hematuria (principal); R10.2 Pelvic and perineal pain
CPT/HCPCS: 80048; 81001; 84703; 85025; 99283; A4216

== ENCOUNTER 2023-12-23 12:38 | Emergency (ER) | payer MEDICAID, SELFPAY ==
[2023-12-23 12:38] VITALS: BP 125/90; PULSE 79; RESP 16; TEMP 37.1; O2SAT 98; BMI 27.4
--- NOTE | 2023-12-23 13:07 | EX.ED.DYSGE1 ---
HPI History of Present Illness Chief Complaint: Dizziness Informant: patient and parent Onset/Context/Timing Onset: Today and Hours Timing: Continuous Current Severity: Mild Maximum Severity: Mild Narrative Narrative: 28-year-old female history of concussions and migraine headaches. She has had extensive workup for this including CT imaging of the brain and MRI last April of last year. States she awoke this morning around 1:30 AM with dizziness. Says she feels lightheaded. Is not room spinning. Or vertiginous. She denies any recent head trauma. She denies any recent illness. No vomiting. No severe headache. Prior similar symptoms: Yes Recent Illness/Hospitalization: No [facility] Medical History Anxiety Home Medications ?Medication ?Instructions ?Recorded ?Last Taken ?Type escitalopram oxalate 20 mg tablet 20 mg PO DAILY 04/05/19 Unknown History lansoprazole 30 mg capsule,delayed 30 mg PO DAILY 04/05/19 Unknown History release norethindrone (contraceptive) 0.35 0.35 mg PO DAILY 04/05/19 Unknown History mg tablet magnesium citrate 300 ml PO X1 ##1 12/01/19 Unknown Rx metoclopramide HCl 10 mg tablet 10 mg PO 4X/DAY PRN Headache #20 12/01/19 Unknown Rx tabs cyclobenzaprine 10 mg tablet 10 mg PO TID PRN muscle spasm #15 09/16/21 Unknown Rx tabs ibuprofen 800 mg tablet 800 mg PO Q8H PRN pain #30 tabs 09/16/21 Unknown Rx sulfamethoxazole 800 1 tab PO BID 5 days #10 tabs 10/04/23 Unknown Rx mg-trimethoprim 160 mg tablet (Bactrim DS) Allergy/AdvReac Type Severity Reaction Status Date / Time No Known Allergies Allergy Verified 12/23/23 12:42 Social History Smoking Status: Never smoker ROS ROS ED ROS Narrative Lightheadedness. Denies vomiting diarrhea or fever. Constitutional Constitutional ED: Denies chills or fever(s) Eyes Eyes: Denies blurry vision ENT ENT ED: Denies ear pain Cardiovascular Cardiovascular: Denies chest pain Respiratory/Chest Respiratory/Chest: Denies cough or dyspnea Gastrointestinal Gastrointestinal: Denies abdominal pain Genitourinary Genitourinary ED: Denies dysuria or hematuria Musculoskeletal Musculoskeletal: Denies arthralgias Integumentary Denies abscess or Abrasions Psychiatric Psychiatric: Denies anxiety Endocrine Endocrinology: Denies cold intolerance Hematologic/Lymphatic Hematologic/Lymphatic: Reports none Allergic/Immunologic Allergic/Immunologic ED: Denies mouth swelling, tongue swelling or urticaria EXAM Physical Exam Narrative Exam Narrative: 19-year-old female no acute distress sitting upright in bed. Anxious. Vital signs are stable afebrile. H EENT exam unremarkable. Pupils are round and reactive light. No facial droop. Normal speech. No trauma. Nontender. Neck nontender. Lungs clear. Heart regular rate and rhythm rate about 80 no murmur. Chest wall ribs nontender. Abdomen soft nontender. Back nontender. Moving all 4 extremities. 5 out of 5 time study observer strength. Dorsi plantarflexion intact bilaterally. Anger tips noted heel ramirez within normal limits. She got up out of the bed ambulate across room back no signs of ataxia. NIH score is 0. Const Vital Signs: 12/23/23 12:38 Temperature 98.7 F Temperature Source Oral Pulse Rate 79 Respiratory Rate 16 Blood Pressure 125/90 H Blood Pressure Mean 101 Pulse Ox 98 Oxygen Delivery Method Room Air Positive well nourished and well developed; Negative for obese, cachectic, contractures or unkempt General Appearance ED: well developed and NAD; Negative for unkempt, cachectic, contractures, cyanotic, diaphoretic or pallor Nutritional Appearance: Negative for cachectic or obese HEENT Reports TM's clear and moist mucous membranes HEENT Narrative: TMs normal. No earwax. Negative for trauma or tenderness Tympanic Membrane ED: Yes TM's clear Eyes PERRL and EOMs intact bilaterally General Eye ED: Negative for pale conjunctiva or scleral icterus Neck no lymphadenopathy, supple and no JVD General: Negative for tenderness Lymph Lymphatic: Negative for other Chest Wall inspection of chest normal and palpation of chest normal Resp normal respiratory effort and clear to auscultation bilaterally Effort and Inspection: Negative for retractions Auscultation: Negative for rales, rhonchi or wheezes Cardio regular rate, regular rhythm, S1 normal heart sound, S2 normal heart sound and no murmurs Rhythm: Negative for abnormal rhythm GI normal to inspection, nondistended, normoactive bowel sounds, non-tender, non-distended and no masses Inspection: Negative for abdominal distention Auscultation: normoactive bowel sounds Palpation: soft; Negative for tender, guarding or rebound tenderness present Back/Spine no CVA tenderness General Back: Negative for CVA tenderness Cervical Spine: Negative for cervical spine tenderness Thoracic Spine / Upper Back: Negative for thoracic spinal tenderness or paraspinal muscle tenderness Lumbar Spine / Lower Back: Negative for lumbar spinal tenderness Extremity normal to inspection General Extremety ED: Negative for edema, tenderness or other findings General Extremity: Negative for edema or other findings Neuro oriented x3, CN's II-XII intact bilaterally and no sensory deficits noted Sensorium / Orientation: alert; Negative for orientation impaired, lethargic or stuporous Sensory Exam: No sensory level loss detected Motor Exam: strength 5/5 throughout Psych mental status grossly normal Appearance: Negative for unkempt Attitude: No agitated Mood & Affect: anxious; Negative for depressed or tearful Skin no rashes or lesions noted, no wounds and skin turgor normal General Skin Exam: elasticity normal; Negative for jaundice or pallor Lesions: No lesion noted Rashes: No rashes noted Trauma: Negative for abrasion Wounds: Negative for wounds noted MDM MDM MDM Narrative Medical decision making narrative: 28-year-old female history of concussions and migraines. Complaining of lightheadedness. Her exam is completely normal. Her neurologic exam is normal. She has had significant imaging of her brain in the past including an MRI last year and prior CTs were negative. Explained to her mom and her that she has a completely normal exam I doubt we find anything but I was badly checked some labs for them which is a would like. A CBC and chemistry be obtained. Repeat exam patient is doing well at 1:54 PM. Went over test results. Repeat exam normal. She will be discharged home with outpatient follow-up. History & Record Review Discussion w/independent historian: Patient and Family Additional record(s) reviewed:: Prior inpatient record, Prior outpatient record, Prior ED visit, Prior labs and Other (I reviewed her labs and imaging from my chart from her [facility] evaluations.) Lab Data Attestation: I reviewed the patient's lab results. Lab results narrative: CBC shows no acute abnormality. White count of 5. H&H 13.8 and 40. Platelets 224. Chemistries are unremarkable. Is 6. Normal BUN and creatinine. Glucose 86. Labs: Laboratory Results - last 24 hr 12/23/23 13:21 WBC 5.6 RBC 4.51 Hgb 13.8 Hct 40.6 MCV 90.0 MCH 30.6 MCHC 34.0 RDW Std Deviation 38.1 RDW Coeff of Kallie 11.6 Plt Count 224 MPV 11.0 Immature Gran % (Auto) 0.200 Neut % (Auto) 45.9 L Lymph % (Auto) 40.0 Slope % (Auto) 6.3 Eos % (Auto) 7.1 H Baso % (Auto) 0.5 Absolute Neuts (auto) 2.6 Absolute Lymphs (auto) 2.24 Nucleated RBC % 0 Sodium 142 Potassium 3.6 Chloride 113 H Carbon Dioxide 23.0 Anion Gap 6 BUN 15 Creatinine 0.76 Estim Creat Clear Calc 91.01 Est GFR (MDRD) Af Amer 116 Est GFR (MDRD) Non-Af 96 BUN/Creatinine Ratio 19.8 Glucose 86 Calcium 8.6 Discharge Plan Triage Chief Complaint: Dizziness ED Provider: Sebastián Harp Dx/Rx/DC Orders Clinical Impression: Dizziness, History of concussion, History of migraine, History of anxiety Instructions: ED Dizziness, Uncertain Cause Prescriptions: No Action lansoprazole 30 MG capsule 30 mg PO DAILY norethindrone (contraceptive) 0.35 MG tablet 0.35 mg PO DAILY escitalopram oxalate 20 MG tablet 20 mg PO DAILY magnesium citrate 300 ML solution 300 ml PO X1 Qty: 1 0RF Rx Instructions: metoclopramide HCl 10 MG tablet 10 mg PO 4X/DAY PRN (Reason: Headache) Qty: 20 0RF cyclobenzaprine 10 mg tablet 10 mg PO TID PRN (Reason: muscle spasm) Qty: 15 0RF ibuprofen 800 mg tablet 800 mg PO Q8H PRN (Reason: pain) Qty: 30 0RF sulfamethoxazole-trimethoprim [Bactrim DS] 800-160 mg tablet 1 tab PO BID 5 Days Qty: 10 0RF Primary Care Provider: Chin Marshall Referrals: Chin Marshall MD [Primary Care Provider] - 3-5 Days if not improving Activity Restrictions/Additional Instructions: Your lab test today look good. Your exam is normal. Follow-up with your primary care physician. Print Language: Japanese Disposition Disposition: Home, Self Care
[2023-12-23 13:26] LABS: Absolute Lymphocyte Count 2.24 X10^3/uL (0.83-4.51); Absolute Neutrophil Count 2.6 X10^3/uL (2.0-7.7); Basophil# 0.03 X10^3/uL; Basophil% 0.5 % (0-1); Eosinophils% 7.1 % (0-5); Hematocrit 40.6 % (37-47); Hemoglobin 13.8 g/dL (12.0-15.0); Lymphocyte # 2.24 X10^3/ul (0.83-4.51); Mean Corpuscular Hgb 30.6 pg (27.0-32.0); Monocyte# 0.35 X10^3/uL; Monocyte% 6.3 % (0-10); NRBC Flagged by Analyzer 0 % (0-5); Neutrophil # 2.57 X10^3/uL (2.7-7.7); Neutrophil % 45.9 % (47-70); Platelet Count 224 K/mm3 (150-450); RBC Distribution Width CV 11.6 % (11.6-14.6); RBC Distribution Width SD 38.1 fl (35.1-43.9); Red Blood Count 4.51 M/mm3 (4.2-5.4); White Blood Count 5.6 K/mm3 (4.4-11.0)
[2023-12-23 13:40] LABS: Anion Gap 6 (5-15); BUN 15 mg/dL (7-18); BUN/Creat Ratio 19.8 RATIO (10-20); Calcium,Total 8.6 mg/dL (8.5-10.1); Chloride 113 mmol/L (98-107); Creatinine, Serum 0.76 mg/dL (0.55-1.02); EST Glomerular Filtration Rate 96 mL/min (>60); Est Glom Filt Rate - Afr Amer 116 mL/min (>60); Estimated Creatinine Clearance 91.01 ml/min; Glucose 86 mg/dL (74-106); Potassium 3.6 mmol/L (3.5-5.1); Sodium Level 142 mmol/L (136-145)
[2023-12-23 14:01] VITALS: BP 130/72; PULSE 81; RESP 16; TEMP 36.6; O2SAT 99
== END 2023-12-23 14:02 | disposition home or self-care (01) ==
PROVIDERS: Emergency Provider Emergency Medicine; PCP Family Medicine; Visit Provider Emergency Medicine
DX: R42 Dizziness and giddiness (principal); F41.9 Anxiety disorder, unspecified
CPT/HCPCS: 80048; 85025; 99283; A4216